=== PATIENT | male | born 1950 | race Caucasian/White ===

== ENCOUNTER 2019-11-02 00:45 | Emergency (ER) | payer SELFPAY ==
[~2019-11-02] VITALS: Ht 182.9 cm; Wt 67.1 kg
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
[2019-11-02] MEDS ORDERED: TDAP [DIPH/PERTUSSIS/TET] 0.5 ML VIAL IM ONE ×2 (01:00→01:05)
--- NOTE | 2019-11-02 01:54 | NUR ---
pt asleep. vss.
--- NOTE | 2019-11-02 03:45 | NUR ---
pt asleep. vss. provided with blanket.
--- NOTE | 2019-11-02 04:11 | NUR ---
Patient discharged to home in stable condition. Written and verbal after care instructions given. Patient verbalizes understanding of instruction. Pt ambulated with steady gait. Pt signed homeless waiver.
[2019-11-02 05:58] VITALS: BP 117/72
== END 2019-11-02 05:58 | disposition home or self-care (01) ==
LOC: ER 00:47
DX: S00.81XA Abrasion of other part of head, initial encounter (principal); R51 Headache; Z95.5 Presence of coronary angioplasty implant and graft; Z59.0 Homelessness; Y00.XXXA Assault by blunt object, initial encounter; Y93.89 Activity, other specified; Y92.89 Other specified places as the place of occurrence of the external cause; Y99.8 Other external cause status
CPT/HCPCS: 70450-TC; 90715

== ENCOUNTER 2019-11-03 16:40 | Inpatient (IN) | payer MEDICARE, SELFPAY ==
[~2019-11-03] VITALS: Ht 177.8 cm; Wt 69.9 kg
[2019-11-03 17:19] LABS: BASOPHILS # (AUTO) 0.1 /CMM (0.0-0.2); BASOPHILS % (AUTO) 1.1 % (0.0-2.0); EOSINOPHILS % (AUTO) 2.5 % (0.0-6.0); HEMATOCRIT 34 % (39-51); HEMOGLOBIN 11.2 g/dL (13.5-17.5); LYMPHOCYTES # (AUTO) 1.6 /CMM (0.8-4.8); LYMPHOCYTES % (AUTO) 32.6 % (20.0-44.0); MEAN CORPUSCULAR HGB CONC 33 g/dl (31.0-36.0); MEAN CORPUSCULAR VOLUME 94 fL (80-96); MONOCYTES # (AUTO) 0.7 /CMM (0.1-1.30); NEUTROPHILS # (AUTO) 2.4 /CMM (1.8-8.9); NEUTROPHILS % (AUTO) 49.8 % (43.0-81.0); PLATELET COUNT (AUTO) 159 /CMM (150-450); RED BLOOD CELL COUNT(AUTO) 3.62 MIL/uL (4.5-6.0); WHITE BLOOD COUNT (AUTO) 4.8 K/uL (4.3-11.0)
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
[2019-11-03 17:37] LABS: APPEARANCE,URINE Slightly Cloudy (CLEAR); BILIRUBIN,URINE MODERATE (NEGATIVE); BLOOD, URINE Negative Ery/uL (NEGATIVE); COLOR,URINE Dark (YELLOW); KETONES,URINE Trace (NEGATIVE); LEUKOCYTE ESTERASE ,URINE Negative (NEGATIVE); NITRITE, URINE Negative (NEGATIVE); PROTEIN,URINE Trace mg/dl (NEGATIVE); UGLUCOSE Negative (NEGATIVE)
[2019-11-03 17:38] LABS: CARBON DIOXIDE 22 mmol/L (21-32); CHLORIDE 108 mmol/L (98-107); CREATININE 1.3 mg/dL (0.6-1.3); GLUCOSE 85 mg/dL (74-106); POTASSIUM 3.7 mmol/L (3.5-5.1); SODIUM SERUM 142 mmol/L (136-145); UREA NITROGEN, BLOOD 31 mg/dL (7-18)
[2019-11-03 17:46] LABS: ALANINE AMINOTRANSFERASE 73 U/L (12-78); ALBUMIN 3.6 g/dL (3.4-5.0); ALKALINE PHOSPHATASE 111 U/L (46-116); ASPARTATE AMINOTRANSFERASE 83 U/L (15-37); BILIRUBIN,DIRECT 0.6 mg/dL (0.0-0.2); BILIRUBIN,TOTAL 1.6 mg/dL (0.2-1.0); TOTAL PROTEIN, SERUM 8.5 g/dL (6.4-8.2)
[2019-11-03 17:48] LABS: BACTERIA,URINE Few /HPF (None Seen); RBC,URINE 0-2 /HPF (0-2); WBC,URINE 0-2 /HPF (0-3)
[2019-11-03 17:49] LABS: SQUAMOUS EPITHELIAL CELL,UR Rare /HPF (None Seen)
[2019-11-03 17:50] LABS: THYROID STIMULATING HORMONE 1.108 uIU/mL (0.358-3.74)
[2019-11-03 18:00] LABS: ALCOHOL, BLOOD 12 mg/dL (0-0)
[2019-11-03 18:03] LABS: ACETAMINOPHEN < 2 ug/ml (10-30); SALICYLATE < 3.0 mg/dL (2.8-20.0)
[2019-11-03] MEDS ORDERED: IV NS 0.9% 1,000 ML IV ONE (18:30)
--- NOTE | 2019-11-03 18:38 | NUR ---
PT PLACED ON O2 VIA NC @ 2LPM FOR 02 SAT NOTED @ 91% SATTING @97%.
--- NOTE | 2019-11-03 18:40 | NUR ---
COVID RESULT: NEGATIVE
[2019-11-03] MEDS ORDERED: MAG HYDROX/AL HYDROX/SIMETH 30 ML UDC PO PRN (19:00)
[2019-11-03] MEDS ORDERED: HYDROCODONE/APAP 5/325MG TABLET PO PRN (19:00)
[2019-11-03] MEDS ORDERED: Z GUARD REMEDY 2 OZ OINT TP PRN (19:00)
[2019-11-03] MEDS ORDERED: ZOLPIDEM TARTRATE 5 MG TABLET PO PRN (19:00)
[2019-11-03] MEDS ORDERED: ACETAMINOPHEN 325 MG TABLET PO PRN (19:00)
[2019-11-03] MEDS ORDERED: MAGNESIUM HYDROXIDE 30 ML UDC PO PRN (19:00)
[2019-11-03] MEDS ORDERED: MEROPENEM 1,000 MG in IV NS 0.9% 100 ML IV ONE (19:00)
[2019-11-03] MEDS ORDERED: ONDANSETRON HCL/PF 4 MG/2 ML VIAL IVP PRN (19:00)
[2019-11-03] MEDS ORDERED: LEVOFLOXACIN 500 MG /D5W 100ML 500 MG in PREMIX 1 EA IV SCH (20:00)
--- NOTE | 2019-11-03 20:58 | NUR ---
REPORT GIVNE TO REJI ORDONEZ FOR IZZY.
--- NOTE | 2019-11-03 21:11 | NUR ---
PT TRANSPORTED TO UNIT ON GURNEY WITH EMT AND RN AT BEDSIDE W/ ACLS PROTOCOL. NAD NOTED DURING TRANSPORT.
--- NOTE | 2019-11-03 21:40 | NUR ---
AUTO FLEET MAINTENANCE MANAGER NOTES ADMITTED PATIENT TRANSPORTED VIA GURNEY, PATIENT IS CONFUSED, DOES NOT WANT TO BE TOUCH AT THIS TIME, AND WANTS TO SLEEP, FROM ER, BREATHING EVEN AND UNLABORED, SIGNS OF ACUTE RESPIRATORY OR CARDIAC DISTRESS NOTED, ADMISSION PROCESS INITIATED, HEAD TO TOE ASSESSMENT DONE, SKIN ISSUES NOTED, PHOTO TAKEN AND PLACED IN PATIENTS' CHART. PERIPHERAL IV ACCESS ON HIS RIGHT WRIST G#18 INTACT AND PATENT. REPOSITIONED FOR COMFORT. SAFETY MEASURES IN PLACE, ASPIRATION PRECAUTION EMPHASIZED, ALL NEEDS ANTICIPATED. KEEP CLEAN WARM AND COMFORTABLE. WILL CONTINUE TO MONITOR ACCORDINGLY.
[2019-11-03 22:08] VITALS: BP 113/59
[2019-11-03] MEDS: IV 1/2NS 1000 ML 1,000 ML IV PRN (22:21)
[2019-11-03] MEDS ORDERED: LORAZEPAM INJ 2 MG/ML VIAL IV PRN (23:30)
[2019-11-04] VITALS: BP 120/70
[2019-11-04 04:00] VITALS: BP_SYST 118; BP_SYST 139; BP_DIAS 53; BP_DIAS 73
--- NOTE | 2019-11-04 06:24 | NUR ---
CASH GRAIN GROWER NOTES' ALL NEEDS ATTENDED AND MET, ABLE TO REST AND SLEPT AT INTERVALS, NO SIGNS OF ACUTE RESPIRATORY DISTRESS NOTED, TELE MONITOR READS SINUS CARY 50s, DENIES ANY PAIN AT THIS TIME, ISAURO RESTING COMFORTABLY. MONITOR FOR SIGNS OF ALCOHOL WITHDRAWAL, STILL CONFUSED BUT COOPERATIVE WITH NURSING CARE. SAFETY MEASURES INPLACE, ASPIRATION PRECAUTION EMPHASIZED, BED IN LOW LOCKED POSITION, CALL LIGHT WITHIN EASY REACH. ALL NEEDS ANTICIPATED IV ACCESS ON HIS RIGHT WRIST G#22 AND LEFT WRIST G#22 INTACT AND PATENT. WILL ENDORSE TO AM NURSE FOR CONTINUITY OF CARE.
[2019-11-04 06:32] LABS: BASOPHILS % (AUTO) 0.6 % (0.0-2.0); HEMATOCRIT 34 % (39-51); LYMPHOCYTES # (AUTO) 1.4 /CMM (0.8-4.8); LYMPHOCYTES % (AUTO) 37.5 % (20.0-44.0); MEAN CORPUSCULAR HGB CONC 33 g/dl (31.0-36.0); MEAN CORPUSCULAR VOLUME 95 fL (80-96); MONOCYTES # (AUTO) 0.5 /CMM (0.1-1.30); MONOCYTES % (AUTO) 12.9 % (2.0-12.0); NEUTROPHILS # (AUTO) 1.7 /CMM (1.8-8.9); PLATELET COUNT (AUTO) 127 /CMM (150-450); RED BLOOD CELL COUNT(AUTO) 3.56 MIL/uL (4.5-6.0); WHITE BLOOD COUNT (AUTO) 3.7 K/uL (4.3-11.0)
[2019-11-04 07:01] LABS: CALCIUM, SERUM 8.8 mg/dL (8.5-10.1); PHOSPHORUS 3.2 mg/dL (2.5-4.9); POTASSIUM 3.6 mmol/L (3.5-5.1)
[2019-11-04 07:02] LABS: THYROID STIMULATING HORMONE 0.807 uIU/mL (0.358-3.74)
--- NOTE | 2019-11-04 07:29 | NUR ---
SPRAY GUN SIZER OPENING NOTES PATIENT RECEIVED ASLEEP IN BED, EASILY AROUSABLE. HOB ELEVATED. A/O X1-2. VERBALLY RESPONSIVE, CONFUSED, DENIES PAIN OR ANY DISCOMFORTS AT THIS TIME. ON 02 VIA N/C @ 2LPM, BREATHING EVEN AND UNLABORED. TELEMONITORING READING AT THIS TIME SHOWS SB WITH WITH HR B/W 45-52, PT DENIES ANY CARDIAC DISTRESS AT THIS TIME. PT WITH IV ACCESS ON L EFT WRIST G#22 AND RIGHT WRIST G #22 BOTH INTACT AND PATENT, IVF INFUSING ORDERED. SAFETY MEASURES IN PLACE: BED IS IN LOWEST LOCKED POSITION WITH SIDE RAILS UP X2. CALL LIGHT IS WITHIN REACH. WILL CONTINUE TO MONITOR.
[2019-11-04] MEDS ORDERED: PANTOPRAZOLE 40 MG TABLET.DR PO SCH (07:30)
[2019-11-04 08:00] VITALS: BP 92/61
[2019-11-04] MEDS: IV 1/2NS 1000 ML 1,000 ML IV PRN (08:13)
--- NOTE | 2019-11-04 12:05 | NUR ---
RN NOTES PT SEEN AND EVALUATED BY PHYSICAL THERAPIST NEYMAR. PT IS AMBULATORY WITH STEADY GAIT. WILL CONTINUE TO MONITOR.
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
--- NOTE | 2019-11-04 15:00 | NUR ---
This SW spoke to REJI Mason regarding the patient. Patient agreed to discharge plan. REJI Mason to provide TAP card for transport. This SW gave the patient the following resources: Housing: [facility] [address] [place] [address] ; [facility] [address] [place] [address]; [facility] [address] [facility] [address] Hygiene: [facility]: [address] [place] ; [facility] [address] [facility] ; [facility] [address] . Food Resources: [place] [facility]- [address] [facility]; [facility] ([facility]) [address] [place]; [facility] [address] [facility]; [facility] [address]. SW to also provide a change of clothes with the assistance of REJI Mason. SW to remain available of all needs regarding this patient.
--- NOTE | 2019-11-04 17:45 | NUR ---
RN DISCHARGED NOTES PT DISCHARGED HOME IN STABLE CONDITION. A/O X3. VERBALLY RESPONSIVE AND ABLE TO AMBULATE IN STEADY GAIT. VITAL SIGNS TAKEN, STABLE AND RECORDED. SENIOR INVESTMENT ANALYST LEVON PROVIDED PT WITH LIST OF HOUSING RESOURCES/SHELTERS, FOOD RESOURCES AND PT ABLE TO UNDERSTAND. PT ALSO PROVIDED CLOTHES AND SHOES. IV ACCESS REMOVED WITH NO BLEEDING NOTED AT SITES, DRY DRESSING APPLIED. NAME ARMBAND REMOVED. HEALTH TEACHINGS GIVEN TO PT AND VERBALIZED UNDERSTANDING. EXIT CARE PAPERS AND HOMELESS PT WAIVER FORM EXPLAINED TO PT AND HE VERBALIZED UNDERSTANDING AND SIGNED THEM. PT GIVEN TAP CARD AND HE SAID THAT HE WILL GO TO HIS FRIEND BUT DIDN'T SPECIFY HIS NAME AND ADDRESS. PT LEFT UNIT AT 1740 ACCOMPANIED BY NGUYỄN NANCE TO THE LOBBY. AND CHARGE NURSE AWARE OF PT'S DISCHARGE.
== END 2019-11-04 17:47 | disposition home or self-care (01) | DRG 896 ==
LOC: ER 16:40 → TELE 20:16 → MED 11-04 10:13
PROVIDERS: ADMIT Student in an Organized Health Care Education/Training Program
DX: F10.239 Alcohol dependence with withdrawal, unspecified (principal); N17.0 Acute kidney failure with tubular necrosis; G92 Toxic encephalopathy; E86.0 Dehydration; D64.9 Anemia, unspecified; I25.10 Atherosclerotic heart disease of native coronary artery without angina pectoris; R40.2362 Coma scale, best motor response, obeys commands, at arrival to emergency department; R40.2142 Coma scale, eyes open, spontaneous, at arrival to emergency department; R40.2242 Coma scale, best verbal response, confused conversation, at arrival to emergency department; Y90.0 Blood alcohol level of less than 20 mg/100 ml; E86.9 Volume depletion, unspecified; R82.6 Abnormal urine levels of substances chiefly nonmedicinal as to source; Z59.0 Homelessness; Z95.5 Presence of coronary angioplasty implant and graft; F10.229 Alcohol dependence with intoxication, unspecified; F19.10 Other psychoactive substance abuse, uncomplicated
CPT/HCPCS: 36415; 70450-TC; 71045-TC; 80048-TC; 80061-TC; 80076-TC; 80305; 81000-TC; 83605-TC; 83735-TC; 84100-TC; 84443-TC; 84484-TC; 85025-TC; 85730-TC; 87040-TC; 87081-TC; 87086-TC; 97116-TC; 97530-TC; A4216; C9803-CS; G0378; G0480; J1956; J2185; J3490; J7030